=== PATIENT | male | born 1990 | race Caucasian/White ===

== ENCOUNTER 2018-02-03 15:49 | Emergency (ER) | payer OTHER ==
[2018-02-03 15:59] VITALS: BP 133/81
[2018-02-03] MEDS ORDERED: NEOMY SULF/POLYMYX B SULF/HC OTIC SUSP 10 ML AS ONE (16:27)
--- NOTE | 2018-02-03 16:36 | ER Document Report ---
Addendum entered and electronically signed by CHICO OLIVIA NP 02/03/18 16:46: Discharge - Discharge Clinical Impression: Left otitis externa Qualifiers: Otitis externa type: unspecified type Chronicity: acute Qualified Code(s): H60.502 - Unspecified acute noninfective otitis externa, left ear Condition: Stable Disposition: HOME, SELF-CARE Instructions: Acetaminophen, Use of Ear Drops ([facility]), Otitis Externa ([facility]) Additional Instructions: *You have been evaluated for ear pain, otitis externa *Use ear drops as prescribed- cortisporin otic, 4 drops left ear three times a day for 5 days *Follow up with a primary care provider within 5 days for recheck *Return to ED for worsening condition, changes, needs, fever, increased pain Monitor your blood pressure. Your blood pressure was elevated today. This may be because you were anxious, in pain or because you need medication. It is important to follow up with your primary care provider for full evaluation. Forms: Elevated Blood Pressure Original Note: HPI - HPI Patient complains to provider of: left ear pain Time Seen by Provider: 02/03/18 16:16 Onset: Last week Onset/Duration: Sudden Quality of pain: Achy Severity: Moderate Context: She presents emergency department with complaints of left-sided ear pain since . He denies trauma. Reports he has not been swimming. Reports he does clean his ears with Q-tips. Denies fever vomiting diarrhea. Denies history of ear infections. Does not wear headphones. Associated Symptoms: None Exacerbated by: Denies Relieved by: Denies Similar symptoms previously: No Recently seen / treated by doctor: No Past Medical History - General Information source: Patient - Social History Smoking Status: Unknown if Ever Smoked Cigarette use (# per day): No Frequency of alcohol use: None Drug Abuse: None Lives with: Family Family History: None Patient has suicidal ideation: No Patient has homicidal ideation: No - Medical History Medical History: Negative Past Surgical History: Reports: Hx Orthopedic Surgery Vertical Provider Document - CONSTITUTIONAL Agree With Documented VS: Yes Exam Limitations: No Limitations General Appearance: WD/WN, No Apparent Distress - INFECTION CONTROL TRAVEL OUTSIDE OF THE [place] IN LAST 30 DAYS: No - HEENT HEENT: Atraumatic, Normocephalic Notes: Left ear canal with erythema, discharge noted. - NECK Neck: Normal Inspection, Supple. negative: Lymphadenopathy-Left, Lymphadenopathy-Right - RESPIRATORY Respiratory: No Respiratory Distress - CARDIOVASCULAR Cardiovascular: Regular Rate - MUSCULOSKELETAL/EXTREMETIES Musculoskeletal/Extremeties: JERROD, MITCH - NEURO Level of Consciousness: Awake, Alert, Appropriate Motor/Sensory: No Motor Deficit - DERM Integumentary: Warm, Dry Course - Re-evaluation Re-evalutation: 02/03/18 16:44 Patient instructed on eardrops. Instructed on the importance of follow-up with her primary care provider or return to the emergency department if symptoms do not go away. He verbalized understanding to all instructions. - Vital Signs Vital signs: Temp Pulse Resp BP Pulse Ox 98.4 F 68 18 133/81 H 97 02/03/18 15:57 02/03/18 15:57 02/03/18 15:57 02/03/18 15:57 02/03/18 15:57 Discharge - Discharge Clinical Impression: Left otitis externa Qualifiers: Otitis externa type: unspecified type Chronicity: acute Qualified Code(s): H60.502 - Unspecified acute noninfective otitis externa, left ear Condition: Stable Disposition: HOME, SELF-CARE Instructions: Acetaminophen, Use of Ear Drops ([facility]), Otitis Externa ([facility]) Additional Instructions: *You have been evaluated for ear pain, otitis externa *Use ear drops as prescribed- cortisporin otic, 4 drops left ear three times a day for 5 days *Follow up with a primary care provider within 5 days for recheck *Return to ED for worsening condition, changes, needs, fever, increased pain Monitor your blood pressure. Your blood pressure was elevated today. This may be because you were anxious, in pain or because you need medication. It is important to follow up with your primary care provider for full evaluation. Forms: Elevated Blood Pressure
== END 2018-02-03 16:45 | disposition home or self-care (01) ==
LOC: ER 15:49
DX: H60.502 Unspecified acute noninfective otitis externa, left ear (principal)
CPT/HCPCS: 99283; J3490